=== PATIENT | female | born 1980 | race African-American/Black ===

== ENCOUNTER 2016-11-24 20:45 | Emergency (ER) | payer OTHER ==
[~2016-11-24] VITALS: Ht 162.6 cm; Wt 91.6 kg
[~2016-11-24 20:45] MED LIST: ALBUTEROL SUL5 MG/ML INH; AMOXICILLIN 50500 M1 PO; AMOXICILLIN250 M1 PO; AMOXICILLIN250 MG PO; AMOXICILLIN500 M1 PO; AMOXICILLIN875 MG PO; APAP/CODEINE ELI5 M1 OR; APAP500; APAP500 PO; ATIVAN0.5 MG; ATIVAN1 MG PO; CITRATE OF MAG296 ML PO; CLONAZEPAM; CYMBALTA20 MG PO; CYMBALTA60 MG PO; DOXYCYCLINE; DOXYCYCLINE 10100 M1; DOXYCYCLINE 10100 MG; EMETROL; FLEXERIL PO; GABAPENTIN PO; GABAPENTIN100 MG PO; HYDROCHLOROTHIA25 M1; HYDROCHLOROTHIA25 M1 PO; IBUPROFEN 600600 M1; IBUPROFEN 600600 M1 PO; KEFLEX500 MG PO; LITHATE5 MG PO; LITHIUM CARBON300 M6 PO; LORTABELXR PO; MAALOX525 MG/15; MOM; NAPROSYN500 MG PO; NEURONTIN 300300 M1 PO; NICOTINE TRANSD14 M1 TD; NORCO 5-325 TA1 EACH; NORCO 5-325 TA1 EACH PO; OMEPRAZOLE 20 M20 MG PO; ONDANSETRON HCL4 M2 PO; PENICILLIN VK500 M1 PO; PERCOCET 5-3251 EACH PO; PHENERGAN 25 MG25 M1 PO; PHENERGAN50 MG RC; PREDNISONE 2.52.5 M1 PO; PRENATA CHEWAB1 EACH PO; PRENATAL; PRENATAL COMPL1 EACH PO; PRENATAL FORMU1 EAC3; PRENATE PLUS T1 EAC1 PO; PRENATE PLUS T1 EACH PO; PROZAC 20 MG20 MG PO; PROZAC20 MG; PROZAC20 MG PO; SLEEP AID; ULTRAM 50MG TAB50 MG; VENTOLIN HFA 1818 GM INH; VICODIN 5-5001 EACH PO; WELLBUTRIN 100100 MG PO; WELLBUTRIN XL300 M1 PO; ZANTAC 150MG T150 MG; ZANTAC 150MG T150 MG PO; ZOFRAN ODT4 MG; ZOFRAN4 MG PO
[2016-11-24] MEDS ORDERED: NORCO 5-325 TA1 EACH PO (22:15)
== END 2016-11-24 23:00 | disposition home or self-care (01) ==
LOC: ER 20:45
DX: O03.9 Complete or unspecified spontaneous abortion without complication (principal); J45.909 Unspecified asthma, uncomplicated; F41.9 Anxiety disorder, unspecified; F32.9 Major depressive disorder, single episode, unspecified; F43.10 Post-traumatic stress disorder, unspecified; G43.809 Other migraine, not intractable, without status migrainosus; I10 Essential (primary) hypertension; F17.210 Nicotine dependence, cigarettes, uncomplicated; Z98.890 Other specified postprocedural states; Z3A.01 Less than 8 weeks gestation of pregnancy

== ENCOUNTER 2017-05-12 00:52 | Emergency (ER) | payer OTHER ==
[~2017-05-12] VITALS: Ht 162.6 cm; Wt 90.7 kg
[2017-05-12] MEDS ORDERED: IBUPROFEN 800800 M1 PO (02:40)
[2017-05-12] MEDS ORDERED: HYDROCODONE-ACE15 ML PO (02:40)
== END 2017-05-12 02:40 | disposition home or self-care (01) ==
LOC: ER 00:52
DX: J02.9 Acute pharyngitis, unspecified (principal); J45.909 Unspecified asthma, uncomplicated; F41.9 Anxiety disorder, unspecified; F43.10 Post-traumatic stress disorder, unspecified; F31.9 Bipolar disorder, unspecified; G43.909 Migraine, unspecified, not intractable, without status migrainosus; I10 Essential (primary) hypertension; F17.210 Nicotine dependence, cigarettes, uncomplicated; Z98.890 Other specified postprocedural states

== ENCOUNTER 2017-10-18 23:23 | Emergency (ER) | payer OTHER ==
[~2017-10-18] VITALS: Ht 162.6 cm; Wt 90.3 kg
[~2017-10-18 23:23] MED LIST changes: +HYDROCODONE-ACE15 ML PO; +IBUPROFEN 800800 M1 PO
[2017-10-18 23:59] LABS: HEMATOCRIT 34.9 % (37.0-47.0); HEMOGLOBIN 11.6 gm/dL (12.0-15.0); MCH 28.5 pg (26.0-34.0); MCHC 33.1 g/dL (28.0-37.0); MCV 86.1 fL (80.0-100.0); PLATELET COUNT 287 thou/uL (150-400); RBC 4.06 mil/uL (4.20-5.00); RDW 14.2 % (10.5-14.5); WBC 5.7 thou/uL (4.0-11.0)
[2017-10-19] LABS: MANUAL DIFF YES
[2017-10-19 00:02] LABS: URINE BILIRUBIN NEGATIVE (Negative); URINE BLOOD NEGATIVE (Negative); URINE COLOR YELLOW; URINE GLUCOSE-RANDOM* NEGATIVE (Negative); URINE KETONES NEGATIVE (Negative); URINE PROTEIN (DIPSTICK) NEGATIVE (Negative); URINE SPECIFIC GRAVITY 1.015 (1.003-1.035); URINE UROBILINOGEN 0.2 E.U./dl (0.2-1.0)
[2017-10-19 00:02] LABS: CALCIUM 9.1 mg/dL (8.5-10.1); CREATININE 0.9 mg/dL (0.6-1.0); POTASSIUM 3.8 mmol/L (3.5-5.1)
[2017-10-19 00:03] LABS: URINE LEUKOCYTES-REFLEX TRACE (Negative)
[2017-10-19 00:08] LABS: ALBUMIN 3.7 g/dL (3.4-5.0); TOTAL BILIRUBIN 0.2 mg/dL (<0.1-1.0); TOTAL PROTEIN 7.3 g/dL (6.4-8.2)
[2017-10-19 01:00] LABS: ABSOLUTE NEUTROPHILS 1.8 thou/uL (1.4-8.2); ATYPICAL LYMPHS 1 %; TOTAL CELL COUNT 100
[2017-10-19] MEDS ORDERED: ACETAMINOPHEN-1 EAC1 PO (03:17)
[2017-10-19] MEDS ORDERED: ZOFRAN ODT8 MG PO (03:17)
== END 2017-10-19 03:41 | disposition home or self-care (01) ==
LOC: ER 23:23
PROVIDERS: Emergency Medicine
DX: O26.891 Other specified pregnancy related conditions, first trimester (principal); J45.909 Unspecified asthma, uncomplicated; F41.9 Anxiety disorder, unspecified; F32.9 Major depressive disorder, single episode, unspecified; F43.10 Post-traumatic stress disorder, unspecified; G43.909 Migraine, unspecified, not intractable, without status migrainosus; I10 Essential (primary) hypertension; F17.210 Nicotine dependence, cigarettes, uncomplicated; Z3A.01 Less than 8 weeks gestation of pregnancy; Z98.890 Other specified postprocedural states; Z87.59 Personal history of other complications of pregnancy, childbirth and the puerperium

== ENCOUNTER 2019-03-02 18:51 | Emergency (ER) | payer OTHER ==
[~2019-03-02] VITALS: Ht 162.6 cm; Wt 97.5 kg
[~2019-03-02 18:51] MED LIST changes: +ACETAMINOPHEN-1 EAC1 PO; +ZOFRAN ODT8 MG PO
[2019-03-02] MEDS ORDERED: PENICILLIN V P500 MG PO (20:09)
[2019-03-02] MEDS ORDERED: ULTRAM 50MG TAB50 MG PO (20:09)
[2019-03-02 20:29] VITALS: BP 143/87
== END 2019-03-02 20:30 | disposition home or self-care (01) ==
LOC: ER 18:51
DX: J02.0 Streptococcal pharyngitis (principal); I10 Essential (primary) hypertension; J45.909 Unspecified asthma, uncomplicated; F41.9 Anxiety disorder, unspecified; F32.9 Major depressive disorder, single episode, unspecified; G43.909 Migraine, unspecified, not intractable, without status migrainosus; F17.210 Nicotine dependence, cigarettes, uncomplicated; Z98.890 Other specified postprocedural states

== ENCOUNTER 2019-11-22 13:59 | Emergency (ER) | payer OTHER ==
[~2019-11-22] VITALS: Ht 162.6 cm; Wt 92.5 kg
[~2019-11-22 13:59] MED LIST changes: +PENICILLIN V P500 MG PO; +ULTRAM 50MG TAB50 MG PO
[2019-11-22] MEDS ORDERED: PRENATAL PO (14:19)
[2019-11-22 15:45] LABS: URINE BILIRUBIN NEGATIVE (Negative); URINE BLOOD TRACE (Negative); URINE CLARITY CLEAR; URINE COLOR YELLOW; URINE GLUCOSE-RANDOM* NEGATIVE (Negative); URINE KETONES NEGATIVE (Negative); URINE LEUKOCYTES-REFLEX NEGATIVE (Negative); URINE NITRITE-REFLEX NEGATIVE (Negative); URINE PROTEIN (DIPSTICK) NEGATIVE (Negative)
[2019-11-22 17:33] VITALS: BP 128/86
== END 2019-11-22 17:33 | disposition home or self-care (01) ==
LOC: ER 13:59
PROVIDERS: Emergency Medicine
DX: O26.891 Other specified pregnancy related conditions, first trimester (principal); M53.3 Sacrococcygeal disorders, not elsewhere classified; I10 Essential (primary) hypertension; J45.909 Unspecified asthma, uncomplicated; G43.909 Migraine, unspecified, not intractable, without status migrainosus; F41.9 Anxiety disorder, unspecified; F32.9 Major depressive disorder, single episode, unspecified; F17.210 Nicotine dependence, cigarettes, uncomplicated; Z98.890 Other specified postprocedural states; Z3A.01 Less than 8 weeks gestation of pregnancy